=== PATIENT | male | born 2000 | race Hispanic/Latino ===

== ENCOUNTER 2023-05-31 10:45 | Emergency (ER) | payer OTHER, SELFPAY ==
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
[2023-05-31 10:47] VITALS: BP 126/71; PULSE 61; RESP 18; TEMP 36.4; O2SAT 99
--- NOTE | 2023-05-31 11:01 | ECG_ITS ---
Measurements Intervals [place] Rate: 53 P: 29 [place]: 160 QRS: 49 QRSD: 90 T: 50 QT: 392 QTc: 369 Interpretive Statements SINUS BRADYCARDIA NONSPECIFIC T-WAVE ABNORMALITY NONSPECIFIC ST ABNORMALITY ABNORMAL ECG NO PREVIOUS ECG AVAILABLE FOR COMPARISON Electronically Signed On 05-31-2023 15:41:43 CDT by Melecio Love M.D.
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
--- NOTE | 2023-05-31 11:01 | PC.NURSE ---
Pt to XRAY via w/c at this time.
== END 2023-05-31 12:02 | disposition home or self-care (01) ==
PROVIDERS: Emergency Provider Nurse Practitioner Family
DX: S20.212A Contusion of left front wall of thorax, initial encounter (principal); V43.52XA Car driver injured in collision with other type car in traffic accident, initial encounter
CPT/HCPCS: 71046; 71100; 93005; 99283